=== PATIENT | female | born 1950 | race Caucasian/White ===

== ENCOUNTER 2017-03-05 02:19 | Inpatient (IN) | payer MEDICARE ==
[~2017-03-05] VITALS: Ht 165.1 cm; Wt 71.9 kg
[~2017-03-05 02:19] MED LIST: LISINOPRIL10 MG; LISINOPRIL20 MG PO; LOMOTIL 0.025 M1 TA1 PO; LOMOTIL 0.025 M1 TAB PO; MELOXICAM15 MG; ROBITUSSIN AC 10 MG/ PO; ZITHROMAX250 MG PO; ZOFRAN ODT8 MG PO; ZOFRAN4 MG PO
[2017-03-05 02:20] VITALS: BP 147/84
[2017-03-05] MEDS ORDERED: OMEPRAZOLE40 MG PO (02:21)
[2017-03-05 02:37] LABS: BILIRUBIN NEGATIVE (NEGATIVE); BLOOD NEGATIVE (NEGATIVE); CLARITY SL CLOUDY (CLEAR); COLOR YELLOW (YELLOW); GLUCOSE NEGATIVE (NEGATIVE); KETONE NEGATIVE (NEGATIVE); LEUKO ESTERASE 2+ (NEGATIVE); NITRITE NEGATIVE (NEGATIVE); PH 5.5 (5.0-9.0); PROTEIN NEGATIVE (NEGATIVE); UROBILINOGEN 0.2 E.U./dl (0.2-1.0)
[2017-03-05 02:45] LABS: BACTERIA TRACE; URINE REFLEX COMMENT YES (NO)
[2017-03-05 02:58] LABS: BASO % 0.6 % (0.0-1.0); EOS # 0.3 10*3/uL (0.0-0.4); EOS % 4.2 % (1.0-4.0); HEMATOCRIT 39.8 % (37.0-47.0); HEMOGLOBIN 13.5 g/dl (12.0-16.0); LYMPH # 1.9 10*3/uL (1.3-4.4); LYMPH % 30.2 % (27.0-41.0); MEAN CELL VOLUME 86.5 fl (81.0-99.0); MEAN CORPUSCULAR HGB 29.3 pg (27.0-31.0); MEAN CORPUSCULAR HGB CONC 33.9 g/dl (33.0-37.0); MEAN PLATELET VOLUME 9.4 fl (9.6-12.3); MONO # 0.3 10*3/uL (0.1-1.0); NEUT # 3.9 10*3/uL (2.3-7.9); NEUT % 60.7 % (47.0-73.0); PLATELET COUNT AUTOMATED 236 10*3/uL (130-400); RED CELL DISTRI WIDTH 12.8 % (0-14.5); WHITE BLOOD COUNT 6.4 10*3/uL (4.8-10.8)
[2017-03-05 03:12] LABS: ALBUMIN 3.8 gm/dl (3.1-4.5); ALKALINE PHOSPHATASE 98 U/L (45-117); BILIRUBIN, TOTAL 0.5 mg/dl (0.2-1.0); BUN 11 mg/dl (7-24); C-REACTIVE PROTEIN 0.32 MG/DL (0-0.3); CARBON DIOXIDE 25 mmol/L (21-32); CHLORIDE 103 mmol/L (98-107); EST GLOM FILT AFRICAN AMERICAN > 60 ml/min; GLUCOSE 116 mg/dL (65-99); POTASSIUM 3.3 mmol/L (3.5-5.1); SGOT/AST 9 IU/L (3-35); SGPT/ALT 20 U/L (12-78); SODIUM 141 mmol/L (136-145); TOTAL PROTEIN 6.6 gm/dL (6.4-8.2)
[2017-03-05 04:55] LABS: LA>2 REFLEX 2 HR DRAW NOW
[2017-03-05 05:30] VITALS: BP 179/84
[2017-03-05 08:00] VITALS: BP 152/82
[2017-03-05 12:00] VITALS: BP 129/78
[2017-03-05 16:00] VITALS: BP 150/69
[2017-03-05 20:07] VITALS: BP 133/63
[2017-03-06] VITALS: BP 128/66
[2017-03-06 07:06] LABS: BASO % 0.5 % (0.0-1.0); EOS # 0.2 10*3/uL (0.0-0.4); EOS % 3.8 % (1.0-4.0); HEMATOCRIT 37.5 % (37.0-47.0); HEMOGLOBIN 12.2 g/dl (12.0-16.0); LYMPH # 1.5 10*3/uL (1.3-4.4); LYMPH % 23.3 % (27.0-41.0); MEAN CELL VOLUME 88.9 fl (81.0-99.0); MEAN CORPUSCULAR HGB 28.9 pg (27.0-31.0); MEAN CORPUSCULAR HGB CONC 32.5 g/dl (33.0-37.0); MEAN PLATELET VOLUME 9.8 fl (9.6-12.3); MONO # 0.4 10*3/uL (0.1-1.0); MONO % 5.7 % (3.0-9.0); NEUT # 4.2 10*3/uL (2.3-7.9); NEUT % 66.4 % (47.0-73.0); PLATELET COUNT AUTOMATED 213 10*3/uL (130-400); RED BLOOD COUNT 4.22 10*6/uL (4.10-5.10); RED CELL DISTRI WIDTH 13.2 % (0-14.5); WHITE BLOOD COUNT 6.3 10*3/uL (4.8-10.8)
[2017-03-06 07:34] LABS: INTERNATIONAL NORM RATIO 1.1 (2.0-3.5); PROTHROMBIN TIME 11.2 SECONDS (9.0-12.4)
[2017-03-06 07:38] LABS: BUN 5 mg/dl (7-24); CARBON DIOXIDE 27 mmol/L (21-32); CHLORIDE 109 mmol/L (98-107); EST GLOM FILT AFRICAN AMERICAN > 60 ml/min; GLUCOSE 102 mg/dL (65-99); SODIUM 143 mmol/L (136-145)
[2017-03-06 07:39] LABS: POTASSIUM 4.3 mmol/L (3.5-5.1)
[2017-03-06 08:00] VITALS: BP 170/90; BP 174/84
[2017-03-06] MEDS ORDERED: FLAGYL500 MG PO (14:07)
[2017-03-06] MEDS ORDERED: CIPRO500 MG PO (14:07)
== END 2017-03-06 15:03 | disposition home or self-care (01) | DRG 690 ==
LOC: ED 02:19 → EDHOLD 04:45 → 5E 04:45
PROVIDERS: Emergency Medicine Emergency Medical Services; Internal Medicine Hospice and Palliative Medicine
DX: N39.0 Urinary tract infection, site not specified (principal); E87.2 Acidosis; K57.32 Diverticulitis of large intestine without perforation or abscess without bleeding; I10 Essential (primary) hypertension; K44.9 Diaphragmatic hernia without obstruction or gangrene; R73.9 Hyperglycemia, unspecified; E87.6 Hypokalemia; K21.9 Gastro-esophageal reflux disease without esophagitis; Z82.49 Family history of ischemic heart disease and other diseases of the circulatory system; Z90.710 Acquired absence of both cervix and uterus; Z84.89 Family history of other specified conditions; Z79.899 Other long term (current) drug therapy

== ENCOUNTER → 2017-11-18 | Outpatient (CLI) | payer MEDICARE ==
[~2017-11-18] MED LIST changes: +CIPRO500 MG PO; +FLAGYL500 MG PO; +OMEPRAZOLE40 MG PO
== END | disposition home or self-care (01) ==
LOC: MAMMO 16:40
DX: Z12.31 Encounter for screening mammogram for malignant neoplasm of breast (principal)

== ENCOUNTER 2018-06-24 10:53 | Inpatient (IN) | payer MEDICARE ==
[~2018-06-24] VITALS: Ht 165.1 cm; Wt 70.9 kg
[2018-06-24] VITALS (7 sets, daily range): BP systolic 126–177; BP diastolic 62–95
--- NOTE | ~2018-06-24 | EKG ---
[place], [place] ELECTROCARDIOGRAM REPORT NAME: TUAN ERICKSON UNIT #: [id number] ROOM: 531 DOCTOR: LEROY DRAFT REPORT BIRTHDATE: [birth year] [facility] Test Date: 2018-06-24 Test Time: 15:08:55 Pat Name: TUAN EIRCKSON Department: Room: 531 1 Gender: F Craft Manager: Estefania Solomonewa : 1950 Requested By: PELON JIMENEZ Order Number: [id number] Reading MD: Srinivas Foley MD Measurements Intervals [place] Rate: 72 P: -8 WA: 133 QRS: 1 QRSD: 87 T: 23 QT: 404 QTc: 443 Interpretive Statements Sinus rhythm Baseline wander in lead(s) I,V6 Electronically Signed On 06-24-2018 17:20:38 PDT by Srinivas Foley MD CM:EKGRPT:ELECTROCARDIOGRAM REPORT [id number] 1720 PELON HARPER DRAFT REPORT PELON JIMENEZ
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
--- NOTE | ~2018-06-24 | EKG ---
[place], [place] ELECTROCARDIOGRAM REPORT NAME: TUAN ERICKSON UNIT #: [id number] ROOM: 531 DOCTOR: LEROY DRAFT REPORT BIRTHDATE: [birth year] [facility] Test Date: 2018-06-24 Test Time: 11:19:48 Pat Name: TUAN ERICKSON Department: Room: 531 Gender: F Research Program Intern: : 1950 Requested By: DARWIN JIMENEZ Order Number: [id number] Reading MD: Srinivas Foley MD Measurements Intervals [place] Rate: 83 P: -6 MS: 133 QRS: -7 QRSD: 93 T: 30 QT: 372 QTc: 437 Interpretive Statements Sinus rhythm Borderline T wave abnormalities Electronically Signed On 06-24-2018 17:19:55 PDT by Srinivas Foley MD CM:EKGRPT:ELECTROCARDIOGRAM REPORT [id number] 1719 DARWIN MERA DRAFT REPORT DARWIN JIMENEZ DO
--- NOTE | ~2018-06-24 | EKG ---
[place], [place] ELECTROCARDIOGRAM REPORT NAME: TUAN ERICKSON UNIT #: [id number] ROOM: 531 DOCTOR: LEROY DRAFT REPORT BIRTHDATE: [birth year] [facility] Test Date: 2018-06-24 Test Time: 17:25:37 Pat Name: TUAN ERICKSON Department: Room: 531 1 Gender: F Environmental Services Specialist: 16 : 1950 Requested By: PELON JIMENEZ Order Number: [id number] Reading MD: Srinivas Foley MD Measurements Intervals [place] Rate: 71 P: 15 GA: 156 QRS: 13 QRSD: 86 T: 33 QT: 376 QTc: 409 Interpretive Statements Sinus rhythm No change from earlier ECG this date. Electronically Signed On 06-24-2018 17:21:58 PDT by Srinivas Foley MD CM:EKGRPT:ELECTROCARDIOGRAM REPORT 24 172 PELON HARPER DRAFT REPORT PELON JIMENEZ
[2018-06-24 11:21] LABS: BASO # 0.1 10*3/uL (0.0-0.1); BASO % 0.8 % (0.0-1.0); EOS # 0.1 10*3/uL (0.0-0.4); EOS % 1.7 % (1.0-4.0); HEMATOCRIT 42.8 % (37.0-47.0); HEMOGLOBIN 14.6 g/dl (12.0-16.0); LYMPH # 1.7 10*3/uL (1.3-4.4); MEAN CELL VOLUME 85.3 fl (81.0-99.0); MEAN CORPUSCULAR HGB 29.1 pg (27.0-31.0); MEAN CORPUSCULAR HGB CONC 34.1 g/dl (33.0-37.0); MONO # 0.3 10*3/uL (0.1-1.0); NEUT # 3.9 10*3/uL (2.3-7.9); NEUT % 64.3 % (47.0-73.0); PLATELET COUNT AUTOMATED 269 10*3/uL (130-400); RED BLOOD COUNT 5.02 10*6/uL (4.10-5.10); RED CELL DISTRI WIDTH 12.9 % (0-14.5)
[2018-06-24 11:37] LABS: ALBUMIN 3.9 gm/dl (3.1-4.5); ALKALINE PHOSPHATASE 102 U/L (45-117); BUN 10 mg/dl (7-24); CHLORIDE 104 mmol/L (98-107); CREATININE 0.87 mg/dL (0.55-1.02); POTASSIUM 3.7 mmol/L (3.5-5.1); SGOT/AST 10 IU/L (3-35); SGPT/ALT 23 U/L (12-78); SODIUM 138 mmol/L (136-145); TOTAL PROTEIN 7.2 gm/dL (6.4-8.2)
[2018-06-24 11:38] LABS: TROPONIN I < 0.015 ng/ml (<0.045)
[2018-06-24] MEDS ORDERED: ASPIRIN CHEWABL81 MG PO (13:33)
[2018-06-25] VITALS: BP 131/63
[2018-06-25 06:30] LABS: BASO % 0.7 % (0.0-1.0); EOS # 0.2 10*3/uL (0.0-0.4); EOS % 2.9 % (1.0-4.0); HEMATOCRIT 38.3 % (37.0-47.0); HEMOGLOBIN 12.8 g/dl (12.0-16.0); LYMPH # 1.9 10*3/uL (1.3-4.4); LYMPH % 33.8 % (27.0-41.0); MEAN CELL VOLUME 86.5 fl (81.0-99.0); MEAN CORPUSCULAR HGB 28.9 pg (27.0-31.0); MEAN CORPUSCULAR HGB CONC 33.4 g/dl (33.0-37.0); MEAN PLATELET VOLUME 9.4 fl (9.6-12.3); MONO # 0.3 10*3/uL (0.1-1.0); MONO % 5.8 % (3.0-9.0); NEUT # 3.1 10*3/uL (2.3-7.9); NEUT % 56.4 % (47.0-73.0); PLATELET COUNT AUTOMATED 240 10*3/uL (130-400); RED BLOOD COUNT 4.43 10*6/uL (4.10-5.10); RED CELL DISTRI WIDTH 13.1 % (0-14.5); WHITE BLOOD COUNT 5.5 10*3/uL (4.8-10.8)
[2018-06-25 06:46] LABS: ALBUMIN 3.2 gm/dl (3.1-4.5); ALKALINE PHOSPHATASE 84 U/L (45-117); BUN 9 mg/dl (7-24); CHLORIDE 108 mmol/L (98-107); CHOLESTEROL 178 mg/dL (<200); CREATININE 0.75 mg/dL (0.55-1.02); FREE T4 0.94 ng/dl (0.76-1.46); HDL CHOLESTEROL 33 mg/dl (40-60); LDL CHOLESTEROL 110 mg/dL (9-159); PHOSPHOROUS 3.3 mg/dL (2.5-4.9); POTASSIUM 4.2 mmol/L (3.5-5.1); SGOT/AST 8 IU/L (3-35); SGPT/ALT 18 U/L (12-78); SODIUM 141 mmol/L (136-145); TOTAL PROTEIN 5.9 gm/dL (6.4-8.2); TRIGLYCERIDES 176 mg/dl (<150); VLDL CHOLESTEROL 35 mg/dL (6-40)
[2018-06-25 06:52] LABS: ACT PARTIAL THROMBO TIME 22.7 SECONDS (20.8-31.5)
[2018-06-25 08:00] VITALS: BP 136/87
[2018-06-25 08:01] LABS: VITAMIN D, 25-HYDROXY 30.9 ng/mL (30-100)
[2018-06-25 12:00] VITALS: BP 170/84
== END 2018-06-25 14:16 | disposition home or self-care (01) | DRG 880 ==
LOC: ED 10:53 → EDHOLD 12:38 → 5E 12:38
PROVIDERS: Emergency Medicine; Student in an Organized Health Care Education/Training Program
DX: F41.9 Anxiety disorder, unspecified (principal); K21.9 Gastro-esophageal reflux disease without esophagitis; R73.9 Hyperglycemia, unspecified; K44.9 Diaphragmatic hernia without obstruction or gangrene; I10 Essential (primary) hypertension; K57.90 Diverticulosis of intestine, part unspecified, without perforation or abscess without bleeding; E78.5 Hyperlipidemia, unspecified; E83.41 Hypermagnesemia; E78.1 Pure hyperglyceridemia; R91.8 Other nonspecific abnormal finding of lung field; J84.10 Pulmonary fibrosis, unspecified; Z87.440 Personal history of urinary (tract) infections; Z90.710 Acquired absence of both cervix and uterus; Z82.49 Family history of ischemic heart disease and other diseases of the circulatory system; Z84.89 Family history of other specified conditions; Z79.82 Long term (current) use of aspirin; Z79.899 Other long term (current) drug therapy

== ENCOUNTER → 2018-08-20 | Day surgery (SDC) | payer MEDICARE ==
[2018-08-20] VITALS (10 sets, daily range): BP systolic 132–192; BP diastolic 81–92
[~2018-08-20] MED LIST changes: +ASPIRIN CHEWABL81 MG PO
[2018-08-20 08:38] LABS: ACT PARTIAL THROMBO TIME 22.3 SECONDS (20.8-31.5)
== END | disposition home or self-care (01) ==
LOC: SDC 08-11 09:00 → CT 08-11 09:00 → RAD 08-11 09:00 → SDC 08-11 11:00
PROVIDERS: Internal Medicine Critical Care Medicine
DX: C34.32 Malignant neoplasm of lower lobe, left bronchus or lung (principal); I10 Essential (primary) hypertension; Z90.710 Acquired absence of both cervix and uterus; Z79.899 Other long term (current) drug therapy; Z98.890 Other specified postprocedural states; Z72.89 Other problems related to lifestyle; Z86.11 Personal history of tuberculosis; Z79.01 Long term (current) use of anticoagulants

== ENCOUNTER → 2018-09-03 | Day surgery (SDC) | payer MEDICARE | END | disposition home or self-care (01) | LOC: SDC 02:48 → RAD 10:00 → SDC 11:00 | DX: R91.8 Other nonspecific abnormal finding of lung field (principal); R93.7 Abnormal findings on diagnostic imaging of other parts of musculoskeletal system ==

== ENCOUNTER 2019-02-27 15:19 | Emergency (ER) | payer MEDICARE ==
[~2019-02-27] VITALS: Ht 165.1 cm; Wt 65.3 kg
[2019-02-27 15:19] VITALS: BP 161/82
== END 2019-02-27 16:00 | disposition home or self-care (01) ==
LOC: ED 15:19
DX: S30.1XXA Contusion of abdominal wall, initial encounter (principal); Z79.82 Long term (current) use of aspirin; Z79.899 Other long term (current) drug therapy; Z90.710 Acquired absence of both cervix and uterus; X58.XXXA Exposure to other specified factors, initial encounter; Y93.89 Activity, other specified; Y92.89 Other specified places as the place of occurrence of the external cause; Y99.8 Other external cause status

== ENCOUNTER 2019-08-09 13:07 | Emergency (ER) | payer MEDICARE ==
[~2019-08-09] VITALS: Ht 165.1 cm; Wt 59.0 kg
[2019-08-09 13:10] VITALS: BP 137/82
[2019-08-09 13:51] LABS: BASO % 0.3 % (0.0-1.0); EOS # 0.1 10*3/uL (0.0-0.4); EOS % 1.7 % (1.0-4.0); HEMATOCRIT 41.6 % (37.0-47.0); HEMOGLOBIN 13.5 g/dl (12.0-16.0); LYMPH # 1.1 10*3/uL (1.3-4.4); LYMPH % 17.8 % (27.0-41.0); MEAN CELL VOLUME 86.1 fl (81.0-99.0); MEAN CORPUSCULAR HGB CONC 32.5 g/dl (33.0-37.0); MEAN PLATELET VOLUME 9.7 fl (9.6-12.3); MONO # 0.5 10*3/uL (0.1-1.0); MONO % 7.7 % (3.0-9.0); NEUT # 4.3 10*3/uL (2.3-7.9); PLATELET COUNT AUTOMATED 255 10*3/uL (130-400); RED BLOOD COUNT 4.83 10*6/uL (4.10-5.10); RED CELL DISTRI WIDTH 13.1 % (0-14.5); WHITE BLOOD COUNT 5.9 10*3/uL (4.8-10.8)
[2019-08-09 14:01] LABS: ACT PARTIAL THROMBO TIME 32.7 SECONDS (20.0-32.1)
[2019-08-09 14:06] LABS: ALBUMIN 3.5 gm/dl (3.1-4.5); ALKALINE PHOSPHATASE 83 U/L (45-117); BUN 4 mg/dl (7-24); CHLORIDE 100 mmol/L (98-107); CREATININE 0.68 mg/dL (0.55-1.02); LIPASE 71 U/L (73-393); POTASSIUM 3.6 mmol/L (3.5-5.1); SGOT/AST 5 IU/L (3-35); SGPT/ALT 16 U/L (12-78); SODIUM 134 mmol/L (136-145); TOTAL PROTEIN 6.7 gm/dL (6.4-8.2)
[2019-08-09 14:08] LABS: TROPONIN I < 0.015 ng/ml (<0.045)
[2019-08-09] MEDS ORDERED: ZITHROMAX250 MG PO (16:11)
[2019-08-09] MEDS ORDERED: PREDNISONE50 MG PO (16:11)
[2019-08-09] MEDS ORDERED: MUCINEX DM ER1 EACH PO (16:11)
== END 2019-08-09 16:28 | disposition home or self-care (01) ==
LOC: ED 13:07
PROVIDERS: Emergency Medicine
DX: J20.9 Acute bronchitis, unspecified (principal); I10 Essential (primary) hypertension; K21.9 Gastro-esophageal reflux disease without esophagitis; E78.1 Pure hyperglyceridemia; R79.1 Abnormal coagulation profile; Z79.82 Long term (current) use of aspirin; Z79.899 Other long term (current) drug therapy; Z85.118 Personal history of other malignant neoplasm of bronchus and lung